=== PATIENT | male | born 1955 | race American Indian/Alaskan Native ===

== ENCOUNTER 2019-02-04 15:29 | Inpatient (IN) | payer SELFPAY ==
[2019-02-04] MEDS ORDERED: D50W (25GM) Syringe IV ONE ×2 (16:25→16:32)
--- NOTE | 2019-02-04 18:07 | Cat Scan Report ---
PROCEDURE: CT HEAD/BRAIN WO CON TECHNIQUE: Axial helical imaging from the skull base to the vertex. HISTORY: AMS DLP: 1048.34 COMPARISONS: None FINDINGS: There is no evidence of an acute intracranial process, intracranial hemorrhage or mass effect. The ventricles are normal size. There is atherosclerotic vascular calcification of the internal carotid arteries bilaterally at the s kull base. The visualized portions of the orbits, paranasal and mastoid sinuses are unremarkable. The bony structures are unremarkable. IMPRESSION: 1. No evidence of an acute intracranial process, intracranial hemorrhage or mass effect. If there is a clinical suspicion of an acute intracranial process, MRI of the brain may be helpful fo r further evaluation. This document is electronically signed by Jaci Nath MD., February 04 2019 06:05:20 PM ET
[2019-02-04] MEDS ORDERED: NACL 0.9% 1000 ML 1,000 ML IV ONE (18:42)
--- NOTE | 2019-02-04 18:57 | Emergency Department Report ---
ED Altered Mental Status HPI - General Chief Complaint: Altered Mental Status Stated Complaint: ALTERED MENTAL STATUS Time Seen by Provider: 02/04/19 18:21 Source: family, EMS Mode of arrival: Stretcher Limitations: Altered Mental Status - History of Present Illness Initial Comments: Mr. Phoenix is a 63 yo male who has had altered mental status for the past 3 days. Cachexia for several years. Most noticeably on Friday. and [id number] noticed that he has been "talking out of his head". He counts numbers. He appeared delirious. He speaks in foul language. He fell out of bed yesterday. He hit the back of his head. Relatives have noticed mood change one year ago. He has been irritable, verbally abusive to almost everyone. Mr. Phoenix currently weighs 139 pounds at a weight of 6'1". He weighed 185 pounds in high school. 5 years after graduation, he rapidly gained weight. did suspect depression. His maximum weight was approximately 600 pounds. 9 years ago, he underwent a strict diet and exercise regimen. 5 years ago, he has a minimal diet to the point of starvation. He currently only eats nuts and berries. Mr. Phoenix is not able to provided a history. He states, "You are just going to do what you are going to do." Mostly supported financially by his of 43 years. 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 Complaint: altered mental status -: Gradual, days(s) (3), year(s) (1) Severity: severe Consistency of Symptoms: getting worse Context: unknown Associated Symptoms: other (generalized weakness and cachexia) - Related Data Allergies Allergy/AdvReac Type Severity Reaction Status Date / Time No Known Allergies Allergy Verified 02/04/19 17:35 ED Review of Systems ROS: Stated complaint: ALTERED MENTAL STATUS Other details as noted in HPI Comment: Unobtainable due to pts medical conditions ED Past Medical Hx - Past Medical History Previous Medical History?: Yes Hx Asthma: Yes - Surgical History Past Surgical History?: No - Social History Smoking Status: Former Smoker Substance Use Type: None ED Physical Exam - General Limitations: Altered Mental Status General appearance: alert, other (severely cachectic, able to speak full sentences, sentences do not correspond to current conversation., Circular speech pattern) - Head Head exam: Present: atraumatic, normocephalic - Eye Eye exam: Present: normal appearance - ENT ENT exam: Present: mucous membranes moist - Neck Neck exam: Present: normal inspection, full ROM - Respiratory Respiratory exam: Present: normal lung sounds bilaterally. Absent: respiratory distress - Cardiovascular Cardiovascular Exam: Present: regular rate, normal rhythm. Absent: systolic murmur, diastolic murmur, rubs, gallop - GI/Abdominal GI/Abdominal exam: Present: soft, normal bowel sounds - Rectal Rectal exam: Present: deferred - Extremities Exam Extremities exam: Present: normal inspection - Back Exam Back exam: Present: normal inspection - Neurological Exam Neurological exam: Present: alert, oriented X3 - Psychiatric Psychiatric exam: Present: depressed (circular speech, does not answer questions directly), flat affect, other (cir) - Skin Skin exam: Present: warm, dry, intact, normal color. Absent: rash ED Course Vital Signs 02/04/19 02/04/19 02/04/19 18:30 19:00 19:31 Pulse Rate 56 L 58 L 59 L Respiratory 11 L 14 12 Rate Blood Pressure 115/67 115/67 O2 Sat by Pulse 91 99 100 Oximetry 02/04/19 02/04/19 02/04/19 20:01 20:31 21:00 Pulse Rate 52 L 52 L 53 L Respiratory 10 L 10 L 11 L Rate Blood Pressure 116/73 117/74 110/68 O2 Sat by Pulse 99 98 99 Oximetry 02/04/19 02/04/19 02/04/19 21:31 22:01 22:31 Pulse Rate 53 L 61 56 L Respiratory 8 L 14 14 Rate Blood Pressure 110/68 113/71 127/87 O2 Sat by Pulse 98 99 100 Oximetry - Lab Data Result diagrams: 02/04/19 16:49 Lab Results 02/04/19 02/04/19 02/04/19 Range/Units 16:25 16:49 19:08 ESR (0-20) mm/Hr PT 13.3 (12.2-14.9) Sec. INR 0.95 (0.87-1.13) Sodium 127 L (137-145) mmol/L Potassium 5.3 H (3.6-5.0) mmol/L Chloride 84.6 L (98-107) mmol/L Carbon Dioxide 15 L (22-30) mmol/L Anion Gap 33 mmol/L BUN 48 H (9-20) mg/dL Creatinine 1.1 (0.8-1.5) mg/dL Estimated GFR > 60 ml/min BUN/Creatinine Ratio 44 % Glucose 170 H (75-100) mg/dL POC Glucose 70 (70-105) Lactic Acid (0.7-2.0) mmol/L Calcium 9.0 (8.4-10.2) mg/dL Total Bilirubin 2.20 H (0.1-1.2) mg/dL AST 112 H (5-40) units/L ALT 78 H (7-56) units/L Alkaline Phosphatase 131 H (35-129) units/L Total Creatine Kinase (55-170) units/L Troponin T (0.00-0.029) ng/mL Total Protein 6.5 (6.3-8.2) g/dL Albumin 3.9 (3.9-5) g/dL Albumin/Globulin Ratio 1.5 % Vitamin B12 (211-911) pg/mL Folate (7.3-26.0) ng/mL TSH (0.270-4.200) mlU/mL Urine Color (Yellow) Urine Turbidity (Clear) Urine pH (5.0-7.0) Ur Specific [place] (1.003-1.030) Urine Protein (Negative) mg/dL Urine Glucose (UA) (Negative) mg/dL Urine Ketones (Negative) mg/dL Urine Blood (Negative) Urine Nitrite (Negative) Urine Bilirubin (Negative) Urine Urobilinogen (<2.0) mg/dL Ur Leukocyte Esterase (Negative) Urine WBC (Auto) (0.0-6.0) /HPF Urine RBC (Auto) (0.0-6.0) /HPF U Epithel Cells (Auto) (0-13.0) /HPF Urine Mucus /HPF Acetaminophen (10.0-30.0) ug/mL Plasma/Serum Alcohol (0-0.07) % HIV 1&2 Antibody Rapid (Non React) HIV P24 Antigen (Non React) 02/04/19 02/04/19 02/04/19 Range/Units 19:08 19:08 19:08 ESR (0-20) mm/Hr PT (12.2-14.9) Sec. INR (0.87-1.13) Sodium (137-145) mmol/L Potassium (3.6-5.0) mmol/L Chloride (98-107) mmol/L Carbon Dioxide (22-30) mmol/L Anion Gap mmol/L BUN (9-20) mg/dL Creatinine (0.8-1.5) mg/dL Estimated GFR ml/min BUN/Creatinine Ratio % Glucose (75-100) mg/dL POC Glucose (70-105) Lactic Acid (0.7-2.0) mmol/L Calcium (8.4-10.2) mg/dL Total Bilirubin (0.1-1.2) mg/dL AST (5-40) units/L ALT (7-56) units/L Alkaline Phosphatase (35-129) units/L Total Creatine Kinase 728 H (55-170) units/L Troponin T (0.00-0.029) ng/mL Total Protein (6.3-8.2) g/dL Albumin (3.9-5) g/dL Albumin/Globulin Ratio % Vitamin B12 (211-911) pg/mL Folate (7.3-26.0) ng/mL TSH 1.690 (0.270-4.200) mlU/mL Urine Color (Yellow) Urine Turbidity (Clear) Urine pH (5.0-7.0) Ur Specific [place] (1.003-1.030) Urine Protein (Negative) mg/dL Urine Glucose (UA) (Negative) mg/dL Urine Ketones (Negative) mg/dL Urine Blood (Negative) Urine Nitrite (Negative) Urine Bilirubin (Negative) Urine Urobilinogen (<2.0) mg/dL Ur Leukocyte Esterase (Negative) Urine WBC (Auto) (0.0-6.0) /HPF Urine RBC (Auto) (0.0-6.0) /HPF U Epithel Cells (Auto) (0-13.0) /HPF Urine Mucus /HPF Acetaminophen < 5.0 L (10.0-30.0) ug/mL Plasma/Serum Alcohol (0-0.07) % HIV 1&2 Antibody Rapid (Non React) HIV P24 Antigen (Non React) 02/04/19 02/04/19 02/04/19 Range/Units 19:08 19:08 19:08 ESR (0-20) mm/Hr PT (12.2-14.9) Sec. INR (0.87-1.13) Sodium (137-145) mmol/L Potassium (3.6-5.0) mmol/L Chloride (98-107) mmol/L Carbon Dioxide (22-30) mmol/L Anion Gap mmol/L BUN (9-20) mg/dL Creatinine (0.8-1.5) mg/dL Estimated GFR ml/min BUN/Creatinine Ratio % Glucose (75-100) mg/dL POC Glucose (70-105) Lactic Acid (0.7-2.0) mmol/L Calcium (8.4-10.2) mg/dL Total Bilirubin (0.1-1.2) mg/dL AST (5-40) units/L ALT (7-56) units/L Alkaline Phosphatase (35-129) units/L Total Creatine Kinase (55-170) units/L Troponin T (0.00-0.029) ng/mL Total Protein (6.3-8.2) g/dL Albumin (3.9-5) g/dL Albumin/Globulin Ratio % Vitamin B12 150.0 L (211-911) pg/mL Folate 6.57 L (7.3-26.0) ng/mL TSH (0.270-4.200) mlU/mL Urine Color (Yellow) Urine Turbidity (Clear) Urine pH (5.0-7.0) Ur Specific [place] (1.003-1.030) Urine Protein (Negative) mg/dL Urine Glucose (UA) (Negative) mg/dL Urine Ketones (Negative) mg/dL Urine Blood (Negative) Urine Nitrite (Negative) Urine Bilirubin (Negative) Urine Urobilinogen (<2.0) mg/dL Ur Leukocyte Esterase (Negative) Urine WBC (Auto) (0.0-6.0) /HPF Urine RBC (Auto) (0.0-6.0) /HPF U Epithel Cells (Auto) (0-13.0) /HPF Urine Mucus /HPF Acetaminophen (10.0-30.0) ug/mL Plasma/Serum Alcohol < 0.01 (0-0.07) % HIV 1&2 Antibody Rapid (Non React) HIV P24 Antigen (Non React) 02/04/19 02/04/19 02/04/19 Range/Units 19:08 19:08 19:42 ESR 6 (0-20) mm/Hr PT (12.2-14.9) Sec. INR (0.87-1.13) Sodium (137-145) mmol/L Potassium (3.6-5.0) mmol/L Chloride (98-107) mmol/L Carbon Dioxide (22-30) mmol/L Anion Gap mmol/L BUN (9-20) mg/dL Creatinine (0.8-1.5) mg/dL Estimated GFR ml/min BUN/Creatinine Ratio % Glucose (75-100) mg/dL POC Glucose (70-105) Lactic Acid (0.7-2.0) mmol/L Calcium (8.4-10.2) mg/dL Total Bilirubin (0.1-1.2) mg/dL AST (5-40) units/L ALT (7-56) units/L Alkaline Phosphatase (35-129) units/L Total Creatine Kinase (55-170) units/L Troponin T < 0.010 (0.00-0.029) ng/mL Total Protein (6.3-8.2) g/dL Albumin (3.9-5) g/dL Albumin/Globulin Ratio % Vitamin B12 (211-911) pg/mL Folate (7.3-26.0) ng/mL TSH (0.270-4.200) mlU/mL Urine Color (Yellow) Urine Turbidity (Clear) Urine pH (5.0-7.0) Ur Specific [place] (1.003-1.030) Urine Protein (Negative) mg/dL Urine Glucose (UA) (Negative) mg/dL Urine Ketones (Negative) mg/dL Urine Blood (Negative) Urine Nitrite (Negative) Urine Bilirubin (Negative) Urine Urobilinogen (<2.0) mg/dL Ur Leukocyte Esterase (Negative) Urine WBC (Auto) (0.0-6.0) /HPF Urine RBC (Auto) (0.0-6.0) /HPF U Epithel Cells (Auto) (0-13.0) /HPF Urine Mucus /HPF Acetaminophen (10.0-30.0) ug/mL Plasma/Serum Alcohol (0-0.07) % HIV 1&2 Antibody Rapid Non react (Non React) HIV P24 Antigen Non react (Non React) 02/04/19 02/04/19 Range/Units 20:29 20:43 ESR (0-20) mm/Hr PT (12.2-14.9) Sec. INR (0.87-1.13) Sodium (137-145) mmol/L Potassium (3.6-5.0) mmol/L Chloride (98-107) mmol/L Carbon Dioxide (22-30) mmol/L Anion Gap mmol/L BUN (9-20) mg/dL Creatinine (0.8-1.5) mg/dL Estimated GFR ml/min BUN/Creatinine Ratio % Glucose (75-100) mg/dL POC Glucose (70-105) Lactic Acid 1.20 (0.7-2.0) mmol/L Calcium (8.4-10.2) mg/dL Total Bilirubin (0.1-1.2) mg/dL AST (5-40) units/L ALT (7-56) units/L Alkaline Phosphatase (35-129) units/L Total Creatine Kinase (55-170) units/L Troponin T (0.00-0.029) ng/mL Total Protein (6.3-8.2) g/dL Albumin (3.9-5) g/dL Albumin/Globulin Ratio % Vitamin B12 (211-911) pg/mL Folate (7.3-26.0) ng/mL TSH (0.270-4.200) mlU/mL Urine Color Yellow (Yellow) Urine Turbidity Clear (Clear) Urine pH 5.0 (5.0-7.0) Ur Specific [place] 1.026 (1.003-1.030) Urine Protein <15 mg/dl (Negative) mg/dL Urine Glucose (UA) 50 (Negative) mg/dL Urine Ketones Tr (Negative) mg/dL Urine Blood Sm (Negative) Urine Nitrite Neg (Negative) Urine Bilirubin Neg (Negative) Urine Urobilinogen < 2.0 (<2.0) mg/dL Ur Leukocyte Esterase Neg (Negative) Urine WBC (Auto) 1.0 (0.0-6.0) /HPF Urine RBC (Auto) 1.0 (0.0-6.0) /HPF U Epithel Cells (Auto) < 1.0 (0-13.0) /HPF Urine Mucus Few /HPF Acetaminophen (10.0-30.0) ug/mL Plasma/Serum Alcohol (0-0.07) % HIV 1&2 Antibody Rapid (Non React) HIV P24 Antigen (Non React) 02/04/19 19:06 EKG obtained 1747 Sinus Bradycardia rate 50 bpm nl axis nl intervals ST elevation peaked T waves - Radiology Data Radiology results: report reviewed Chest x-ray radiology report left pleural thickening CT head: Radiology report no acute process - Medical Decision Making Mr. lewis presents with signs and symptoms of severe metabolic encephalopathy. I suspect vitamin deficiency such as B12 or folate as the cause due to his severe diet restriction and obvious cachexia. I also suspect severe eating disorder anorexia. Dementia workup initiated in the ED including folate, vitamin B12, HIV, syphilis. Will admit to the hospitalist service for further treatment and evaluation. I suspect patient will need parenteral or tube feeding. Labs reviewed, confirming suspicion of metabolic derangement. Malignancy is also consideration. Critical Care Time: Yes Critical care time in (mins) excluding proc time.: 40 Critical care attestation.: If time is entered above; I have spent that time in minutes in the direct care of this critically ill patient, excluding procedure time. 40 minutes of critical care time excluding procedures were used in the care of the patient. Patient required multiple assessments and interventions. I reviewed the electronic medical record. I spoke with industrial rehabilitation consultant involved in the care of the patient. ED Disposition Clinical Impression: Acute metabolic encephalopathy, Severe malnutrition, Anorexia Disposition: OP ADMIT IP TO THIS HOSP Is pt being admited?: Yes Does the pt Need Aspirin: No Condition: Stable
[2019-02-04 20:10] LABS: INR 0.95 (0.87-1.13)
--- NOTE | 2019-02-04 20:17 | XRay Report ---
PROCEDURE: XR CHEST 1V AP TECHNIQUE: Chest radiograph posteroanterior projection. CPT 08362 HISTORY: Altered mental status COMPARISONS: None . FINDINGS: Heart: Normal. Mediastinum/Vessels: Normal. Lungs/Pleural space: There is extensive left-sided pleural calcification with thickening of the left pleural stripe. There is mild elevation of right hemidiaphragm. There is evidence of scarring and in terstitial prominence in the right upper lung. Right pleural space is clear.. Bony thorax: No acute osseous abnormality. IMPRESSION: Extensive calcification left pleura noted without any obvious acute pulmonary process in the left lung. Scarring right upper lobe. Any underlying infiltrates cannot be excluded. Comparison with any prior studies would be of help.. . This document is electronically signed by Torres Mckeon MD., February 04 2019 08:14:41 PM ET
[2019-02-04 20:53] LABS: Bilirubin,Urine NEG (Negative); Blood,Urine SM (Negative); Color,Urine Yellow (Yellow); Mucus,Urine FEW /HPF; Protein,Urine <15 mg/dL mg/dL (Negative); Urobilinogen,Urine < 2.0 mg/dL (<2.0)
[2019-02-04] MEDS ORDERED: ZOFRAN IV PRN (22:04)
[2019-02-04] MEDS ORDERED: TYLENOL PO PRN (22:05)
[2019-02-04] MEDS: HEPARIN SUB-Q SCH (22:18)
[2019-02-04 22:41] LABS: Albumin 3.9 g/dL (3.9-5); BUN/Creatinine Ratio 44; Blood Urea Nitrogen 48 mg/dL (9-20); Hemolysis Index 97
[2019-02-04 22:46] LABS: Alanine Aminotransferase 78 units/L (7-56)
[2019-02-04] MEDS ORDERED: NACL 0.9% 1000 ML 1,000 ML IV SCH (23:00)
[2019-02-04 23:49] LABS: Basophils % (Auto) 0.3 % (0.0-1.8); Eosinophils % (Auto) 0.1 % (0.0-4.3); Hematocrit 39.3 % (35.5-45.6); Hemoglobin 13.1 gm/dl (11.8-15.2); Lymphocytes # (Auto) 0.2 K/mm3 (1.2-5.4); Lymphocytes % (Auto) 4.1 % (13.4-35.0); Mean Corpuscular HGB Conc 33 % (32-34); Mean Corpuscular Volume 84 fl (84-94); Monocytes # (Auto) 0.4 K/mm3 (0.0-0.8); Platelet Count 155 K/mm3 (140-440); Red Blood Count 4.68 M/mm3 (3.65-5.03); Red Cell Distribution Width 13.4 % (13.2-15.2)
[2019-02-05] MEDS: D5/0.45NS 1,000 ML IV SCH (01:17)
[2019-02-05] MEDS ORDERED: KIONEX PO ONE (05:31)
--- NOTE | 2019-02-05 08:16 | History and Physical Report ---
CHIEF COMPLAINT: Altered mental status. OTHER COMPLAINT: Include poor oral intake. HISTORY OF PRESENT ILLNESS: The patient is a 63-year-old male brought in because of change in mental status going on for about 3 days. The patient's spouse and relatives say that the patient was big before and then started dieting using only liquid diets and multivitamins, and not eating much food and then lost a lot of weight and then started getting confused and fell out of the bed the day prior to presentation, possibly hitting the back of his head on the ground. There was no history of chest pain, no history of fever or chills. No history of nausea or vomiting. The patient was brought in for evaluation and was noted to be seriously underweight with weight of about 139 pounds for a height of 6 feet 1 inch. PAST MEDICAL HISTORY: Pertinent for asthma. PAST SURGICAL HISTORY: Unremarkable. FAMILY HISTORY: Family history is noncontributory. SOCIAL HISTORY: The patient is a former cigarette smoker, does not drink, does not use illicit drugs. MEDICATIONS: The patient's home medications are not known. ALLERGIES: There are no known drug allergies. REVIEW OF SYSTEMS: CONSTITUTIONAL: There is no fever, no chills, no diaphoresis. HEENT: There is no headache or sore throat. CARDIOVASCULAR SYSTEM: There is no chest pain, orthopnea. RESPIRATORY SYSTEM: There is no shortness of breath or cough. GASTROINTESTINAL SYSTEM: Poor oral intake and poor appetite noted. No diarrhea, no constipation, no nausea or vomiting or abdominal pain. NEUROLOGICAL SYSTEM: Altered mental status noted. No dizziness. MUSCULOSKELETAL SYSTEM: There is no joint pain or swelling. DERMATOLOGICAL SYSTEM: There is no skin rash or itching. GENITOURINARY SYSTEM: There is no dysuria, hematuria or flank pain. Rest of system review is normal. PHYSICAL EXAMINATION: GENERAL: At the time of exam, the patient was found to be lethargic, but arousable. Oriented to person, looking very emaciated and cachectic, but not in acute distress. VITAL SIGNS: At the initial time of presentation, shows normal temperature with pulse of 56, respiration 11, blood pressure 115/67, O2 sat of 91%, which eventually got up to 99%. HEENT: Show sunken eyes with pupils being round, reactive to light and accommodating and extraocular muscles being intact. NECK: Neck is supple with no JVD or carotid bruit. CARDIOVASCULAR SYSTEM: Showed normal first and second heart sounds with no gallops or murmurs. RESPIRATORY SYSTEM: Showed good air entry on both sides of the lungs with no abnormal breath sounds. GASTROINTESTINAL SYSTEM: Show abdomen to be full, soft, nontender with no organomegaly or rigidity. NEUROLOGICAL: Neuro exam shows the patient to be lethargic, but arousable with no focal deficit. MUSCULOSKELETAL SYSTEM: Show no joint swelling or tenderness. DERMATOLOGICAL SYSTEM: Show no skin rash. GENITOURINARY SYSTEM: Showing no costovertebral angle tenderness. PERTINENT LABORATORY DATA AND IMAGING STUDIES: The patient had CT of the head without contrast that shows no evidence of acute intracranial process. There is no finding of any blood or mass effect. Also the patient had a chest x-ray done that shows extensive calcification of the left pleura noted without any obvious acute pulmonary process in the left lung, scarring on the right upper lobe of the lung was also noted and radiology said to compare with prior studies. Lab results; the patient has CBC done, which was unremarkable except for elevated segmented neutrophil of 88.5% on a CBC differential. The patient's coagulation studies were unremarkable. The patient's chemistry show elevated potassium level of 5.3 with low sodium level of 129, low CO2 of 15, elevated BUN of 48 with normal creatinine and normal GFR of greater than 60. The patient's total bilirubin level was high with a value of 2.2 and liver transaminases show high AST of 112 and high ALT of 78. The patient's total CPK was high with a value of 728 with normal troponin level. The patient's vitamin B12 level was low with a value of 150 and patient's folate level was also low with a value of 6.57 and TSH was normal. The patient's urinalysis was unremarkable. Toxicology screen was unremarkable. The patient's serology for HIV test came back normal. DIAGNOSES: 1. Altered mental status with metabolic encephalopathy. 2. Severe malnutrition. 3. Hyperkalemia. PLAN OF CARE: 1. The patient will be admitted to medical floor and will be on remote telemetry. 2. The patient will have consult with the dietitian for malnutrition. 3. The patient will be placed on nutritional supplements like Ensure 1 can 3 times a day. 4. The patient's diet will be regular diet. 5. The patient will be on p.r.n. medications like Tylenol 650 mg by mouth every 4 hours for fever and headache and IV Zofran 4 mg every 8 hours for nausea and vomiting. 6. The patient will have a dose of Kayexalate 30 g one time po. 7. The patient will be on IV D5 half normal saline running at 100 mL an hour. 8. The patient will have basic metabolic panel checked sometime today after getting treated for hyperkalemia and also to monitor the sodium level. JOB# [id number] OCN/NTS MTDD
[2019-02-05] MEDS: HEPARIN SUB-Q SCH ×2 (09:30→22:47)
[2019-02-05] MEDS: VITAMIN B-12 PO SCH (09:30)
[2019-02-05 10:54] LABS: BUN/Creatinine Ratio 40; Blood Urea Nitrogen 36 mg/dL (9-20); Calcium 8.6 mg/dL (8.4-10.2); Hemolysis Index 22
--- NOTE | 2019-02-05 15:47 | Progress Note ---
Assessment and Plan AMS/delirium Hyponatremia B12 deficiency Folate deficiency Poor oral intake Possible psychosis Severe PCM - monitor at [facility] - refusing medications and iv fluid and labs - will consult psych, will do haldol as needed - lovenox for DVt Px Brief history: Mr. Phoenix is a 63 yo male with h/o poor oral intake, malnutrition presented with altered mental status for the past 3 days. and [id number] noticed that he has been "talking out of his head". He counts numbers. appeared delirious,sspeaks in foul language. He fell out of bed at home and He hit the back of his head. Relatives also noticed mood change one year ago. He has been irritable, verbally abusive to almost everyone. Mr. Phoenix currently weighs 139 pounds at a weight of 6'1". He is not able to give any history only states, "You are just going to do what you are going to do." Subjective Date of service: 02/05/19 Interval history: pt seen and examined doesnot follow commend took put iv line, refusing meds and refusing lab only wants fruits Objective - Constitutional Vitals: Vital Signs - 12hr 02/05/19 02/05/19 06:31 14:25 Temperature 97.8 F 98.9 F Pulse Rate 88 Respiratory 18 18 Rate Blood Pressure 109/73 110/81 O2 Sat by Pulse 98 Oximetry General appearance: Present: no acute distress, cachectic - EENT Eyes: PERRL, EOM intact ENT: hearing intact, clear oral mucosa Ears: bilateral: normal - Neck Neck: supple, normal ROM - Respiratory Respiratory effort: normal Respiratory: bilateral: CTA - Cardiovascular Rhythm: regular Heart Sounds: Present: S1 & S2. Absent: gallop, rub Extremities: pulses intact, No edema, normal color, Full ROM - Gastrointestinal General gastrointestinal: Present: soft, non-tender, non-distended, normal bowel sounds - Integumentary Integumentary: clear, warm, dry - Musculoskeletal Musculoskeletal: generalized weakness - Neurologic Neurologic: moves all extremities - Psychiatric Psychiatric: no appropriate mood/affect, no intact judgment & insight, no memory intact, agitated, other (does not folow commend) - Labs CBC & Chem 7: 02/04/19 23:29 02/05/19 10:08 Labs: Abnormal lab results 02/04/19 02/04/19 02/04/19 Range/Units 16:49 19:08 19:08 Lymph % (Auto) (13.4-35.0) % Lymph # (1.2-5.4) K/mm3 Seg Neutrophils % (40.0-70.0) % Sodium 127 L (137-145) mmol/L Potassium 5.3 H (3.6-5.0) mmol/L Chloride 84.6 L (98-107) mmol/L Carbon Dioxide 15 L (22-30) mmol/L BUN 48 H (9-20) mg/dL Glucose 170 H (75-100) mg/dL Total Bilirubin 2.20 H (0.1-1.2) mg/dL AST 112 H (5-40) units/L ALT 78 H (7-56) units/L Alkaline Phosphatase 131 H (35-129) units/L Total Creatine Kinase 728 H (55-170) units/L Vitamin B12 (211-911) pg/mL Folate (7.3-26.0) ng/mL Acetaminophen < 5.0 L (10.0-30.0) ug/mL 02/04/19 02/04/19 02/04/19 Range/Units 19:08 19:08 23:29 Lymph % (Auto) 4.1 L (13.4-35.0) % Lymph # 0.2 L (1.2-5.4) K/mm3 Seg Neutrophils % 88.5 H (40.0-70.0) % Sodium (137-145) mmol/L Potassium (3.6-5.0) mmol/L Chloride (98-107) mmol/L Carbon Dioxide (22-30) mmol/L BUN (9-20) mg/dL Glucose (75-100) mg/dL Total Bilirubin (0.1-1.2) mg/dL AST (5-40) units/L ALT (7-56) units/L Alkaline Phosphatase (35-129) units/L Total Creatine Kinase (55-170) units/L Vitamin B12 150.0 L (211-911) pg/mL Folate 6.57 L (7.3-26.0) ng/mL Acetaminophen (10.0-30.0) ug/mL 02/05/19 Range/Units 10:08 Lymph % (Auto) (13.4-35.0) % Lymph # (1.2-5.4) K/mm3 Seg Neutrophils % (40.0-70.0) % Sodium 123 L (137-145) mmol/L Potassium (3.6-5.0) mmol/L Chloride 87.5 L (98-107) mmol/L Carbon Dioxide (22-30) mmol/L BUN 36 H (9-20) mg/dL Glucose 101 H (75-100) mg/dL Total Bilirubin (0.1-1.2) mg/dL AST (5-40) units/L ALT (7-56) units/L Alkaline Phosphatase (35-129) units/L Total Creatine Kinase (55-170) units/L Vitamin B12 (211-911) pg/mL Folate (7.3-26.0) ng/mL Acetaminophen (10.0-30.0) ug/mL
[2019-02-05] MEDS: FOLVITE PO SCH (17:49)
[2019-02-05] MEDS ORDERED: VITAMIN B-12 IM ONE (18:02)
[2019-02-06] MEDS: HEPARIN SUB-Q SCH ×2 (13:32→22:00)
[2019-02-06] MEDS: FOLVITE PO SCH (13:32)
[2019-02-06] MEDS: VITAMIN D3 PO SCH (13:33)
[2019-02-06] MEDS: VITAMIN B-12 PO SCH (13:33)
--- NOTE | 2019-02-06 15:09 | Progress Note ---
Assessment and Plan AMS/delirium/psychosis Hyponatremia B12 deficiency Folate deficiency Poor oral intake/anorexia Possible psychosis Severe PCM - [facility] - refusing medications and iv fluid and labs - will follow psych recommendation, will do haldol as needed - lovenox for DVt Px Brief history: Mr. Phoenix is a 63 yo male with h/o poor oral intake, malnutrition presented with altered mental status for the past 3 days. and [id number] noticed that he has been "talking out of his head". He counts numbers. appeared delirious,sspeaks in foul language. He fell out of bed at home and He hit the back of his head. Relatives also noticed mood change one year ago. He has been irritable, verbally abusive to almost everyone. Mr. Phoenix currently weighs 139 pounds at a weight of 6'1". He is not able to give any history only states, "You are just going to do what you are going to do." Physical exam: General appearance: Present: no acute distress, cachectic - EENT Eyes: PERRL, EOM intact ENT: hearing intact, clear oral mucosa Ears: bilateral: normal - Neck Neck: supple, normal ROM - Respiratory Respiratory effort: normal Respiratory: bilateral: CTA - Cardiovascular Rhythm: regular Heart Sounds: Present: S1 & S2. Absent: gallop, rub Extremities: pulses intact, No edema, normal color, Full ROM - Gastrointestinal General gastrointestinal: Present: soft, non-tender, non-distended, normal bowel sounds - Integumentary Integumentary: clear, warm, dry - Musculoskeletal Musculoskeletal: generalized weakness - Neurologic Neurologic: moves all extremities - Psychiatric Psychiatric: no appropriate mood/affect, no intact judgment & insight, no memory intact, agitated, other (does not folow commend) Subjective Date of service: 02/06/19 Interval history: pt seen and examined refusing meds and refusing lab Discussed with at bedside Objective - Constitutional Vitals: Vital Signs - 12hr 02/06/19 02/06/19 09:00 11:48 Temperature 97.9 F 97.6 F Pulse Rate 82 62 Respiratory 16 18 Rate Blood Pressure 125/82 Blood Pressure 116/73 [Right] O2 Sat by Pulse 98 98 Oximetry - Labs CBC & Chem 7: 02/04/19 23:29 02/05/19 10:08
--- NOTE | 2019-02-06 19:57 | Consultation ---
History of Present Illness - Reason for Consult Consult date: 02/06/19 Reason for consult: Initial Psychiatric Evaluation - Chief Complaint Chief complaint: " I ate my own bowel movement by mistake" - History of Present Psychiatric Illness Patient is a 63 year old male who presented to the emergency room with altered mental status for the past 3 days. Patient has a hx of cachexia for several years. Psychiatry was consulted for anorexia. Today the patient is cooperative but anxious during the assessment. He reports that he presented to the hospital because he ate his own bowel movement. He verbalizes " I poisoned my own self and that is what happened." is at bedside. She reports that for the last 5 years patient has only eaten fruit. She reports " he's not eating enough and gets confused." He reports from [id number] he weighed over 650 lbs. Patient denies PPHx. He denies anhedonia, decrease energy, decrease appetite, decrease sleep, auditory/visual hallucinations and delusions. Current Psychiatric Medications: Patient denies. Past Psychiatric History: No previous psychiatric diagnosis; no inpatient psychiatric hospitalizations; no outpatient psychiatrist; no previous suicide attempts. Past Medication Trials: Patient denies. History Trauma/Abuse: Patient denies sexual, physical, and mental abuse. History Drug/Alcohol Abuse: PCP- " early ." Social History: Bachelor's Degree in Education; lives with in [place], [place]; no children; no pending legal issues; good support system. Family History of Psychiatric Illness/Substance Abuse: Brother- opiates. Medications and Allergies Allergies Allergy/AdvReac Type Severity Reaction Status Date / Time No Known Allergies Allergy Verified 02/04/19 17:35 Home Medications Medication Instructions Recorded Confirmed Last Taken Type No Known Home Medications [No 02/05/19 02/05/19 Unknown History Reported Home Medications] Active Meds: Active Medications Acetaminophen (Tylenol) 650 mg PO Q4H PRN PRN Reason: Fever >101 Cholecalciferol (Vitamin D3) 1,000 unit PO QDAY [facility] Last Admin: 02/06/19 13:33 Dose: Not Given Documented by: Cyanocobalamin (Vitamin B-12) 300 mcg PO QDAY [facility] Last Admin: 02/06/19 13:33 Dose: Not Given Documented by: Folic Acid (Folvite) 1 mg PO QDAY [facility] Last Admin: 02/06/19 13:32 Dose: Not Given Documented by: Heparin Sodium (Porcine) (Heparin) 5,000 unit SUB-Q Q12HR [facility] Last Admin: 02/06/19 13:32 Dose: Not Given Documented by: Dextrose/Sodium Chloride (D5/0.45ns) 1,000 mls @ 100 mls/hr IV DIRECT CARL Last Admin: 02/05/19 01:17 Dose: 100 mls/hr Documented by: Ondansetron HCl (Zofran) 4 mg IV Q8H PRN PRN Reason: Nausea And Vomiting Mental Status Exam - Vital signs Last Vital Signs Temp 99.2 F 02/06/19 17:17 Pulse 73 02/06/19 17:22 Resp 16 02/06/19 17:17 BP 113/81 02/06/19 17:17 Pulse Ox 100 02/06/19 17:17 - Exam Narrative exam: Mental Status Exam Appearance: calm, cooperative Behavior: regular eye contact Speech: regular rate and tone Mood: "Happy" Affect: appropriate Thought Process: circumstantial Thought Content: denies SI/HI, A/VH's, and delusions Motor Activity: sitting up in the bed Cognition: A/O x3 Insight: fair Judgment: fair to variable Results Result Diagrams: 02/04/19 23:29 02/05/19 10:08 All other labs normal. Assessment and Plan Assessment and plan: Impression: Anorexia. Eating Disorder. Today the patient is calm and cooperative during the assessment. Medical: Sodium 123, Chloride 87.5 Recommendation/Plan: 1. Place patient on strict intake and output. 2. Monitor food consumption. 3. Discussed the benefits and risks of medication. Recommended appetite stimulant. At this time patient refuses all medication. 4. Will consult dietitian for malnutrition/eating disorder. Disposition: Will attempt to gain collateral to determine proper disposition. Will staff with Dr. Sandhu
[2019-02-07] MEDS: VITAMIN B-12 PO SCH (09:14)
[2019-02-07] MEDS: FOLVITE PO SCH (09:15)
[2019-02-07] MEDS: VITAMIN D3 PO SCH (09:15)
[2019-02-07] MEDS ORDERED: HALDOL IM ONE (10:00)
[2019-02-07] MEDS: D5/0.45NS 1,000 ML IV SCH ×2 (10:02→22:42)
[2019-02-07] MEDS ORDERED: HALDOL IM PRN (10:44)
[2019-02-07] MEDS: HEPARIN SUB-Q SCH ×2 (11:05→22:52)
--- NOTE | 2019-02-07 11:54 | Progress Note ---
Subjective - Reason for Consult Consult date: 02/07/19 Reason for consult: Psychiatric Follow-up Evaluation - Chief Complaint Chief complaint: "I'm feeling pretty good." Patient is a 63 year old male who presented to the emergency room with altered mental status for the past 3 days. Patient has a hx of cachexia for several years. Psychiatry was consulted for anorexia. Today the patient is calm and cooperative during the assessment. Thought process is more organized. He endorses poor sleep and appetite. He denies SI/HI's, A/VH's, and delusions. Patient has decided to take medication to assist with insomnia, mood, and appetite. Mental Status Exam - Vital signs Last Vital Signs Temp 97.6 F 02/07/19 05:20 Pulse 94 H 02/07/19 05:20 Resp 20 02/07/19 08:39 BP 106/78 02/07/19 05:20 Pulse Ox 96 02/07/19 05:20 - Exam Narrative exam: Mental Status Exam Appearance: calm, cooperative Behavior: regular eye contact Speech: regular rate and tone Mood: "I feel great" Affect: appropriate Thought Process: circumstantial Thought Content: denies SI/HI, A/VH's, and delusions Motor Activity: sitting up in the bed Cognition: A/O x3 Insight: fair Judgment: fair Assessment and Plan Impression: Anorexia. Eating Disorder. Today the patient is calm and cooperative during the assessment. He denies SI/HI's, A/VH's, and delusions. Medical: Sodium 123, Chloride 87.5 Recommendation/Plan: 1. Will reassess in [address] patient on strict intake and output. Monitor food consumption. 2. Start Remeron 7.5 mg po QHS insomnia/appetite. Discussed possible side effects of suicidal ideations/medication induced anuj. 3. Awaiting dietitian consult for malnutrition/eating disorder. 4. Once sodium is WNL, psychiatry will determine patient decision making capacity. Recommend Delirium precautions below: 1. Frequently reorient patient and involve him/her in their care (simple explanations of procedures, tests, medications). 2. Lights on and shades open during daytime hours. 3. Write date and goals of care in a visible place. 4. Try to avoid unnecessary interruptions to sleep during nighttime hours. 5. Obtain glasses, hearing aids from home if patient uses these at baseline. 6. Avoid medications that may exacerbate delirium (especially narcotics, benzodiazepines, barbiturates, ambien, lunesta, and medications with excessive anticholinergic properties). Disposition: Will reassess in 24 hours. Will staff with Dr. Sandhu .
--- NOTE | 2019-02-07 12:06 | Progress Note ---
Assessment and Plan AMS/delirium/psychosis Hyponatremia B12 deficiency Folate deficiency Poor oral intake/anorexia Possible psychosis Severe PCM - monitor at [facility] - cont medications and iv fluid and repeat labs - will follow psych recommendation, will do haldol as needed - replace vitamins, replace electrolytes as needed - consulted dietary, add megace to stimulate appetite - lovenox for DVt Px Brief history: Mr. Phoenix is a 63 yo male with h/o poor oral intake, malnutrition presented with altered mental status for the past 3 days. and [id number] noticed that he has been "talking out of his head". He counts numbers. appeared delirious,sspeaks in foul language. He fell out of bed at home and He hit the back of his head. Relatives also noticed mood change one year ago. He has been irritable, verbally abusive to almost everyone. Mr. Phoenix currently weighs 139 pounds at a weight of 6'1". He is not able to give any history only states, "You are just going to do what you are going to do." refused meds, iv fluid and labs following admission. appears more cooperative today, will cont to monitor Physical exam: General appearance: Present: no acute distress, cachectic - EENT Eyes: PERRL, EOM intact ENT: hearing intact, clear oral mucosa Ears: bilateral: normal - Neck Neck: supple, normal ROM - Respiratory Respiratory effort: normal Respiratory: bilateral: CTA - Cardiovascular Rhythm: regular Heart Sounds: Present: S1 & S2. Absent: gallop, rub Extremities: pulses intact, No edema, normal color, Full ROM - Gastrointestinal General gastrointestinal: Present: soft, non-tender, non-distended, normal bowel sounds - Integumentary Integumentary: clear, warm, dry - Musculoskeletal Musculoskeletal: generalized weakness - Neurologic Neurologic: moves all extremities - Psychiatric Psychiatric: no appropriate mood/affect, no intact judgment & insight, no memory intact, but appears more cooperative today Subjective Date of service: 02/07/19 Interval history: pt seen and examined mental status much improved today, allowed for iv fluid, and took meds Discussed with RN at bedside Objective - Constitutional Vitals: Vital Signs - 12hr 02/07/19 02/07/19 05:20 08:39 Temperature 97.6 F Pulse Rate 94 H Respiratory 24 20 Rate Blood Pressure 106/78 O2 Sat by Pulse 96 Oximetry - Labs CBC & Chem 7: 02/08/19 07:27 02/08/19 07:27
[2019-02-07] MEDS: MEGACE PO SCH (13:03)
[2019-02-07] MEDS: REMERON PO SCH (22:42)
[2019-02-08 07:46] LABS: Basophils % (Auto) 0.1 % (0.0-1.8); Eosinophils % (Auto) 0.5 % (0.0-4.3); Hematocrit 36.5 % (35.5-45.6); Hemoglobin 12.4 gm/dl (11.8-15.2); Lymphocytes # (Auto) 0.4 K/mm3 (1.2-5.4); Lymphocytes % (Auto) 7.8 % (13.4-35.0); Mean Corpuscular HGB Conc 34 % (32-34); Mean Corpuscular Volume 85 fl (84-94); Monocytes # (Auto) 0.4 K/mm3 (0.0-0.8); Monocytes % (Auto) 7.6 % (0.0-7.3); Platelet Count 126 K/mm3 (140-440); Red Blood Count 4.29 M/mm3 (3.65-5.03); Red Cell Distribution Width 13.3 % (13.2-15.2)
[2019-02-08 07:56] LABS: BUN/Creatinine Ratio 33; Blood Urea Nitrogen 23 mg/dL (9-20); Calcium 8.3 mg/dL (8.4-10.2); Hemolysis Index 15
[2019-02-08] MEDS: D5/0.45NS 1,000 ML IV SCH ×2 (08:26→22:59)
[2019-02-08] MEDS: HEPARIN SUB-Q SCH ×2 (11:07→21:20)
[2019-02-08] MEDS: MEGACE PO SCH (11:15)
[2019-02-08] MEDS: FOLVITE PO SCH (11:16)
[2019-02-08] MEDS: VITAMIN B-12 PO SCH (11:16)
[2019-02-08] MEDS: VITAMIN D3 PO SCH (11:16)
--- NOTE | 2019-02-08 14:26 | Progress Note ---
Subjective - Reason for Consult Consult date: 02/08/19 Reason for consult: Psychiatry Follow-up - Chief Complaint Chief complaint: "I want to eat" 63 year old male who presented to the emergency room with altered mental status for the past 3 days. Today the patient is calm and cooperative during the assessment. He stated that he ate his dinner and breakfast this morning. He stated that adequate food intake is critical. He was asked about being depressed, he stated "No." He asked if I the provider can "check " on him tomorrow. He acknowledged sleeping well last night. He denies SI/HI's and AVH's. He denies any side effects of his medications. Mental Status Exam - Vital signs Last Vital Signs Temp 97.6 F 02/08/19 11:37 Pulse 80 02/08/19 11:37 Resp 18 02/08/19 11:37 BP 101/72 02/08/19 11:37 Pulse Ox 100 02/08/19 11:37 - Exam Narrative exam: MSE: Appearance: calm, cooperative Behavior: regular eye contact Speech: regular rate and loud tone Mood: "okay" Affect: congruent to mood Thought Process: logical Thought Content: denies SI/HI's and AVH's Motor Activity: sitting up in the bed Cognition: A/O x2, with some confusion. Insight: fair Judgment: fair Assessment and Plan Impression: Anorexia. Today the patient is calm and cooperative during the assessment. NA 132. Dietitian consult pending. DDx: R/O Mood DO Recommendation/Plan: Continue Remeron 7.5 mg PO HS for sleep. Discussed possible suicidality/medication induced anuj with the patient reference Remeron. Will follow up with the patient in 24 hours. Weigh patient daily. Recommend daily calorie count. Dispo: The patient can follow up wih [facility] for outpatient psy servuces. Will staff with Dr. Josue Webster.
--- NOTE | 2019-02-08 15:45 | Progress Note ---
Assessment and Plan AMS/delirium/psychosis Hyponatremia B12 deficiency Folate deficiency Poor oral intake/anorexia Possible psychosis Severe PCM Elevated LFT - monitor at [facility] - cont medications and iv fluid and repeat labs - will follow psych recommendation, will do haldol as needed - Continue Remeron 7.5 mg PO HS for sleep - replace vitamins, replace electrolytes as needed - consulted dietary, added megace to stimulate appetite - repeat LFT tomorrow and check hepatitis panel - lovenox for DVt Px Brief history: Mr. Phoenix is a 63 yo male with h/o poor oral intake, malnutrition presented with altered mental status for the past 3 days. and [id number] noticed that he has been "talking out of his head". He counts numbers. appeared delirious,sspeaks in foul language. He fell out of bed at home and He hit the back of his head. Relatives also noticed mood change one year ago. He has been irritable, verbally abusive to almost everyone. Mr. Phoenix currently weighs 139 pounds at a weight of 6'1". He is not able to give any history only states, "You are just going to do what you are going to do." refused meds, iv fluid and labs following admission. appears more cooperative now, taking meds and eating better. Lab improved, will cont to monitor, order PT eval. Possible d/c tomorrow if remains stable. Physical exam: General appearance: Present: no acute distress, cachectic - EENT Eyes: PERRL, EOM intact ENT: hearing intact, clear oral mucosa Ears: bilateral: normal - Neck Neck: supple, normal ROM - Respiratory Respiratory effort: normal Respiratory: bilateral: CTA - Cardiovascular Rhythm: regular Heart Sounds: Present: S1 & S2. Absent: gallop, rub Extremities: pulses intact, No edema, normal color, Full ROM - Gastrointestinal General gastrointestinal: Present: soft, non-tender, non-distended, normal bowel sounds - Integumentary Integumentary: clear, warm, dry - Musculoskeletal Musculoskeletal: generalized weakness - Neurologic Neurologic: moves all extremities - Psychiatric Psychiatric: no appropriate mood/affect, no intact judgment & insight, no memory intact, but appears more cooperative today Subjective Date of service: 02/08/19 Interval history: pt seen and examined mental status much improved today, allowed for iv fluid, and took meds Discussed with RN and at bedside Patient more cooperative today Objective - Constitutional Vitals: Vital Signs - 12hr 02/08/19 02/08/19 04:57 11:37 Temperature 98.1 F 97.6 F Pulse Rate 60 80 Respiratory 20 18 Rate Blood Pressure 108/76 101/72 O2 Sat by Pulse 100 100 Oximetry - Labs CBC & Chem 7: 02/08/19 07:27 02/09/19 04:49 Labs: Abnormal lab results 02/08/19 02/08/19 Range/Units 07:27 07:27 Plt Count 126 L (140-440) K/mm3 Lymph % (Auto) 7.8 L (13.4-35.0) % [place] % (Auto) 7.6 H (0.0-7.3) % Lymph # 0.4 L (1.2-5.4) K/mm3 Seg Neutrophils % 84.0 H (40.0-70.0) % Sodium 132 L D (137-145) mmol/L Chloride 93.5 L (98-107) mmol/L Carbon Dioxide 31 H (22-30) mmol/L BUN 23 H (9-20) mg/dL Creatinine 0.7 L (0.8-1.5) mg/dL Calcium 8.3 L (8.4-10.2) mg/dL
[2019-02-08] MEDS: REMERON PO SCH (21:20)
[2019-02-09 07:23] LABS: BUN/Creatinine Ratio 28; Blood Urea Nitrogen 28 mg/dL (9-20); Calcium 8.2 mg/dL (8.4-10.2); Hemolysis Index 13
[2019-02-09 09:03] LABS: Albumin 3.5 g/dL (3.9-5); Bilirubin,Direct 0.3 mg/dL (0-0.2)
[2019-02-09] MEDS: VITAMIN D3 PO SCH (10:22)
[2019-02-09] MEDS: HEPARIN SUB-Q SCH (10:23)
[2019-02-09] MEDS: FOLVITE PO SCH (10:23)
[2019-02-09] MEDS: VITAMIN B-12 PO SCH (10:23)
[2019-02-09] MEDS: MEGACE PO SCH (10:23)
--- NOTE | 2019-02-09 10:58 | Progress Note ---
Subjective - Reason for Consult Consult date: 02/09/19 Reason for consult: Psychiatry Follow-up - Chief Complaint Chief complaint: "Hello" 63 year old male who presented to the emergency room with altered mental status for the past 3 days. Today the patient is calm and cooperative during the assessment. He stated that is eating all his meals. He stated that he look forward to being discharged and returning home. He stated that he is sleeping like a "baby." He denies SI/HI's and AVH's. He denies any side effects of his medication. Mental Status Exam - Vital signs Last Vital Signs Temp 97.9 F 02/09/19 06:24 Pulse 83 02/09/19 06:24 Resp 18 02/09/19 06:24 BP 104/73 02/09/19 06:24 Pulse Ox 98 02/09/19 06:24 - Exam Narrative exam: MSE: Appearance: calm, cooperative Behavior: regular eye contact Speech: regular rate and loud tone Mood: "okay" Affect: congruent to mood Thought Process: logical Thought Content: denies SI/HI's and AVH's Motor Activity: sitting up in the bed Cognition: A/O x2, with some confusion. Insight: fair Judgment: fair Assessment and Plan Impression: Anorexia. Today the patient is calm and cooperative during the assessment. NA 132. Dietitian consult pending. DDx: R/O Mood DO Recommendation/Plan: Continue Remeron 7.5 mg PO HS for sleep. Discussed possible suicidality/medication induced anuj with the patient reference Remeron. Will follow up with the patient in 24 hours. Weigh patient daily. Recommend daily calorie count. Psy sign off. Dispo: The patient can follow up wi [facility] for outpatient psy services. Will staff with Dr. Josue Webster.
[2019-02-09 11:07] LABS: Hepatitis C Virus Antibody Non-Reactive (NonReactive)
[2019-02-09 12:33] VITALS: BP 96/61
--- NOTE | 2019-02-09 13:36 | Discharge Summary ---
Providers - Providers Date of Admission: 02/04/19 21:57 Date of discharge: 02/09/19 Attending physician: ADARSH FOY 02/05/19 06:01 Consult to Dietitian/Nutrition [CONS] Routine Physician Instructions: Reason For Exam: MALNUTRITION Reason for Consult: Malnutrition 02/05/19 13:58 Consult to Mental Health [CONS] Routine Reason For Exam: anorexia Place consult to:: mental health Notified:: Phone number called:: [phone] Was contact made?: Yes If yes, spoke with:: .... Time called:: 14:06 02/08/19 12:08 Physical Therapy Evaluation and Treat [CONS] Routine Comment: Reason For Exam: placement [facility] Condition: Stable Pertinent studies: Head CT: 1. No evidence of an acute intracranial process, intracranial hemorrhage or mass effect. If there is a clinical suspicion of an acute intracranial process, MRI of the brain may be helpful for further evaluation. CXR: Extensive calcification left pleura noted without any obvious acute pulmonary process in the left lung. Scarring right upper lobe. Any underlying infiltrates cannot be excluded. Hospital course: Brief history: Mr. Phoenix is a 63 yo male with h/o poor oral intake, malnutrition presented with altered mental status for the past 3 days. and [id number]-[id number] noticed that he has been "talking out of his head". He counts numbers. appeared delirious,sspeaks in foul language. He fell out of bed at home and He hit the back of his head. Relatives also noticed mood change one year ago. He has been irritable, verbally abusive to almost everyone. Mr. Phoenix currently weighs 139 pounds at a weight of 6'1". He is not able to give any history only states, "You are just going to do what you are going to do." refused meds, iv fluid and labs following admission. Appears more cooperative now, taking meds and eating better, placed on megace for appetite stimulate, remeron for sleep. Lab improved, s/p PT eval recommended . Patient was then d/c home with in stable condition. Discharge diagnosis: AMS/delirium/psychosis, resolved - likely from severe dehydration, hyponatremia and Vit def - also started on Remeron 7.5 mg PO HS for sleep Hyponatremia, improved with iv fluid B12 deficiency, repleted Folate deficiency, repleted Poor oral intake/anorexia, started on megace, improved Severe PCM, due to poor oral intake, started on megace Elevated LFT, trended down, no abdominal pain, hepatitis panel negative Abnormal chest XRY with extensive calcification and scarring, had no respiratory symptom, repeat CXR outpt in 3-4 weeks. Physical exam: General appearance: Present: no acute distress, cachectic - EENT Eyes: PERRL, EOM intact ENT: hearing intact, clear oral mucosa Ears: bilateral: normal - Neck Neck: supple, normal ROM - Respiratory Respiratory effort: normal Respiratory: bilateral: CTA - Cardiovascular Rhythm: regular Heart Sounds: Present: S1 & S2. Absent: gallop, rub Extremities: pulses intact, No edema, normal color, Full ROM - Gastrointestinal General gastrointestinal: Present: soft, non-tender, non-distended, normal bowel sounds - Integumentary Integumentary: clear, warm, dry - Musculoskeletal Musculoskeletal: generalized weakness - Neurologic Neurologic: moves all extremities - Psychiatric Psychiatric: appropriate mood/affect, appears more cooperative today Disposition: DC-01 TO HOME OR SELFCARE Time spent for discharge: 34 minutes Core Measure Documentation - Palliative Care Palliative Care/ Comfort Measures: Not Applicable - Core Measures Any of the following diagnoses?: none Exam - Constitutional Vitals: Temp Pulse Resp BP Pulse Ox 98.6 F 105 H 18 96/61 97 02/09/19 12:27 02/09/19 12:27 02/09/19 12:27 02/09/19 12:27 02/09/19 12:27 Plan Activity: advance as tolerated Weight Bearing Status: Partial Weight Bearing Diet: regular, other (nutrition boost 1 can with meal) Follow up with: [facility] [Outside] - 7 Days MAUPIN CARROLL MELO MD [Primary Care Provider] - 3-5 Days Prescriptions: Mirtazapine [Remeron] 7.5 mg PO QHS #30 tablet Megestrol [Megace] 400 mg PO QDAY 30 Days oral.liqd Cyanocobalamin [Vitamin B-12] 300 mcg PO QDAY #30 tablet Cholecalciferol Vit D3 [Vitamin D3 1,000 UNIT TAB] 1,000 unit PO QDAY #30 tablet
[2019-02-09] MEDS ORDERED: VITAMIN D2 PO ONE (13:40)
[2019-02-09] MEDS ORDERED: VITAMIN B-12 IM ONE (15:00)
[2019-02-12 09:16] LABS: Hepatitis B Surface Antigen Nonreactive (Negative)
== END 2019-02-09 15:30 | disposition home or self-care (01) | DRG 70 ==
LOC: ED 15:29 → 3A 21:57
PROVIDERS: ADMIT Internal Medicine; ATTEND Internal Medicine
DX: G93.41 Metabolic encephalopathy (principal); E43 Unspecified severe protein-calorie malnutrition; E87.1 Hypo-osmolality and hyponatremia; F29 Unspecified psychosis not due to a substance or known physiological condition; E86.0 Dehydration; F50.9 Eating disorder, unspecified; J45.909 Unspecified asthma, uncomplicated; E87.5 Hyperkalemia; E53.8 Deficiency of other specified B group vitamins; Z68.21 Body mass index [BMI] 21.0-21.9, adult
CPT/HCPCS: 36415; 70450; 71045; 80048; 80053; 80074; 80076; 80320; 81001; 82140; 82306; 82550; 82607; 82747; 82962; 84443; 84484; 85025; 85610; 85652; 86592; 87040; 87086; 87806; 93005; 93010; G0378; G0480; J1630; J1644; J3420; J7030